=== PATIENT | female | born 1940 | race Caucasian/White ===

== ENCOUNTER 2016-10-17 07:45 | Day surgery (SDC) | payer MEDICARE, MEDICAID ==
[~2016-10-17] VITALS: Ht 167.6 cm; Wt 59.0 kg
[2016-10-17] VITALS (9 sets, daily range): BP systolic 84–161; BP diastolic 43–76; PULSE 47–58; RESP 16–18; O2SAT 94–100
[~2016-10-17 07:45] MED LIST: ATEN25TA PO; CHOL400D4 PO; GLUC100016 PO; Lactated Ringer's 1,000 ML IV ONE; NAPR220C11 PO; OMEG300C3 PO; OMEP40CA36 PO; PANT40TA3 PO; PYR50 PO; RESV50CA PO; [UNRECOGNIZED DRUG - CODE] PO
[2016-10-17] MEDS ORDERED: Lidocaine PF 1% 30 mL Inj ONE (07:46)
[2016-10-17] MEDS ORDERED: Propofol 10,000 mCg/mL 20 mL Inj ONE (07:46)
[2016-10-17] MEDS ORDERED: ACAI500C PO (08:16)
[2016-10-17] MEDS ORDERED: [UNRECOGNIZED DRUG - CODE] PO (08:16)
[2016-10-17] MEDS ORDERED: MULT-1018 PO (08:16)
[2016-10-17] MEDS ORDERED: ZINC30TA2 PO (08:16)
[2016-10-17] MEDS ORDERED: CHOL650T PO (08:16)
[2016-10-17] MEDS ORDERED: QUER1POW PO (08:16)
[2016-10-17] MEDS ORDERED: CALC600T12 PO (08:16)
[2016-10-17] MEDS ORDERED: Lactated Ringer's 1,000 ML IV SCH (09:11)
--- NOTE | 2016-10-17 09:11 | PCM.HPANE ---
Patient Data Surgeon Admitting Provider: Attending Provider:Juan Iverson MD Primary Care Physician:Ibis Webster PA-C Other Provider:Kemi Reyesingham Anesthesia Reason for Visit Left Lower Quadrant Pain Ht/WT & BMI Body Mass Index Allergies Coded Allergies: Nitrate Analogues (Verified Allergy, Intermediate, COUGH AND EYE IRRITATION, 10/16/16) Penicillins (Verified Allergy, Intermediate, RASH, 10/16/16) Sulfa (Sulfonamide Antibiotics) (Verified Allergy, Intermediate, GI PROBLEMS, 10/16/16) TAPE (Verified Allergy, Intermediate, RASH, 10/16/16) azithromycin (Verified Allergy, Intermediate, GI UPSET, 10/16/16) hydrocodone (Verified Allergy, Intermediate, VOMITTING, 10/16/16) lactase (Verified Allergy, Intermediate, RASH, 10/16/16) oxycodone (Verified Allergy, Intermediate, NAUSEA/VOMITING, 10/16/16) codeine (Verified Adverse Reaction, Mild, vomiting, 10/17/16) gluten (Verified Adverse Reaction, Mild, MIRANDA, 10/17/16) soy (Verified Adverse Reaction, Mild, stomach upset, 10/17/16) Past Anesthesia History Anesthesia History: Denies:: Abnormal Airway, Anesthesia Reactions, Difficult Intubation, Fam Anesthesia Reaction, Fam Malignant Hypertherm, Malignant Hyperthermia Medications Reported Medications Acai Castellanos Extract (Acai Castellanos)500 Mg Capsule1 Tablet PO DAILY 10/17/16 Choline Dihydrogen Citrate (Choline Citrate)650 Mg Tablet1 Tablet PO DAILY 10/17/16 Multivitamin (Multi Vitamin Daily)1 Each Tablet1 Each PO DAILY 30 Days Ref 0 10/17/16 Quercetin Dihydrate 1 Gm Keukdc432 Mg PO DAILY 10/17/16 Zinc Gluconate (Zinc)30 Mg Xzujok67 Mg PO DAILY 10/17/16 Calcium Carbonate (Calcium)600 Mg Tablet3,000 Mg PO DAILY 10/17/16 [place] 10,000 Gm Rvuszz931 Mg PO DAILY 10/17/16 Tiller-3 Fatty Acids (Fish Oil)300 Mg Qhotiik552 Mg PO DAILY 10/16/16 Glucosamine Sulfate 2Kcl (Glucosamine)1,000 Mg Tablet1,000 Mg PO DAILY 10/16/16 Resveratrol 50 Mg Wvdudlw43 Mg PO DAILY 10/16/16 Cholecalciferol (Vitamin D3) (Vitamin D3)400 Unit/1 Ml Zfnxr846 Unit PO 10/16/16 Omeprazole 40 Mg Capsule.dr40 Mg PO TID Ref 0 06/20/16 Atenolol 25 Mg Cyhmil77.5 Mg PO BID #30 TABLET Ref 0 12/18/15 Discontinued Reported Medications Lactase (Lactaid)3,000 Unit Tablet3,000 Unit PO DAILY 10/16/16 Pyridoxine (Vitamin B-6)50 Mg Qsocqx86 Mg PO DAILY 10/16/[address] 40 Mg Tablet.dr40 Mg PO DAILY Ref 0 10/16/16 Naproxen Sodium (Aleve)220 Mg Kdluxqz430 Mg PO DIRECTED PRN For Pain 12/18/15 History History of ENT Problems?: No HEENT History: Denies:: Abnormal Airway Cataracts Difficult Intubation Dysphagia Glaucoma Hearing Problem Sinus Problem TMJ Denture Type: None Teeth Condition: Missing Teeth Hx of Heart Problems?: No Cardiovascular History: Denies:: AICD Abdominal Aortic Aneurism Atrial Fibrillation Cardiac Surgery Chest Pain Congestive Heart Failure Coronary Artery Disease Edema Heart Murmur Hypertension Irregular Heartbeat Pacemaker Peripheral Vascular Rheumatic Fever Thrombophlebitis Valvular Heart Disease Hx of Respiratory Problem?: No Respiratory History: Denies:: Asthma COPD Chest Surgery Cough Dyspnea Emphysema Hemoptysis Oxygen Administration Pneumonia Pulmonary Embolism Tuberculosis Use of C-PAP Machine Use of Inhalers / NEBS Hx Neurologic Problems?: No Neurological History: Denies:: Alzheimer's Disease CVA Dementia Dizziness Headaches Multiple Sclerosis Parkinson's Disease Peripheral Neuropathy Seizures TIA Hx of GI Problems?: No Gastrointestinal History: Denies:: Cirrhosis Diverticulitis Gall Bladder Disease Gastroesphageal Reflux Gastrointestinal Bleeding Heartburn Hepatitis Hiatal Hernia Liver Disease Rectal Bleeding Hx of Problems?: No Genitourinary History: Denies:: HX of Hemodialysis Kidney Stones Urinary Tract Infection HX of Peritoneal Dialysis: No Female Hx: Denies:: Currently Endometriosis Pelvic Inflammatory Problems with Breasts? Skin History: Denies:: History Skin Disorders? Pressure Ulcers Hx Musculoskeletal Problems?: No Musculoskeletal History: Denies:: Back Injury Degenerative Joint Fibromyalgia Joint Replacement Musculoskeletal Trauma Myasthenia Gravis Osteoarthritis Rheumatoid Arthritis Systemic Lupus Hx of Psycho/Social Problems?: No Psycho Social History: Denies:: Anxiety Bipolar Disorder Hx Depression Suicide Attempt Hx Surgeries?: No Hx Any Other Health Problems?: No Other History: Denies:: Cancer Endocrine Disease Hospitalization Thyroid Disease History Blood Transfusions: Denies:: Accept Blood Products? Blood Transfuse Reaction Blood Transfusions Hx Diabetes: No Hx Alcohol Use: NoHave You Smoked inLast 12 mo: No Stop/Bang Risk Assessment Category Category 1A: Patient has history of documented sleep apnea, and HAS NOT received any narcotic, sedative or anesthesia administration during this stay. Category 1B: Patient has history of documented sleep apnea, and HAS received any narcotic , sedative or anesthesia administration during this stay Category 2: Patient has SUSPECTED Obstructive Sleep Apnea, and HAS received any narcotic , sedative or anesthesia administration during this stay. Category 3: Patient has SUSPECTED Obstructive Sleep Apnea and HAS NOT received narcotic, sedative or anesthesia administration during this stay. Category 4: Outpatient in Procedural Areas with known sleep apnea or who screen positive for High Risk via the STOP/BANG questionnaire. Exam Exam General Appearance: Alert, Oriented X3, Cooperative, No Acute Distress HEENT/AIRWAY: MP 2, Neck Movement (FROM), Mouth Opening (3 FBMO) Lungs: Normal Air Movement Heart: Regular Rate/Rhythm Plan Impression Patient chart reviewed, patient interviewed and anesthestic plan with risks, benefits, and alternatives discussed, and informed consent obtained. NPO per Anesth. Guidelines: Yes ASA Physical Status: ASA2 Mod Systemic Disease Anesthetic Plan: GA, MAC Bene/Risks/Altern/Consents: Yes HP Complete Prior to Induction: Yes Eric Ma MD October 17, 2016 07:27
[2016-10-17] MEDS ORDERED: Ondansetron 2 mg/mL 2 mL Inj IVPUSH PRN (09:15)
[2016-10-17] MEDS ORDERED: MetoCLOpramide 5 mg/mL 2 mL Inj IVPUSH PRN (09:15)
--- NOTE | 2016-10-17 09:40 | PCM.ENDCOL ---
Colonoscopy Date of Service: October 17, 2016 Physician Juan Iverson MD Pre Procedure Diagnosis: Abdominal pain screening Post Procedure Dx & Findings: Polyp prominence fold hemorrhoids Procedure Colonoscopy PROCEDURE IN DETAIL: Prep adequate Withdrawal time 15 minutes After unremarkable rectal examination the Olympus video colonoscope was inserted patient's anal canal and was advanced to cecum. Landmarks were identified including the ileocecal valve and appendiceal orifice. Scope further as the terminal ileum which showed normal villous structure without any ulcer mass or ulcer. Advanced 10 cm. Scope was withdrawn systematically. Visualized colonic mucosa showed healthy shiny mucosa with normal healthy- appearing vasculature. In the cecum there were 2 polyps. One was 1 mm polyp and the other polyp was about 2 mm. Both resected completely using cold snare. The transverse colon, there are 2 polyps. Both were about 2-3 mm in size which was removed completely using cold snare. In the sigmoid colon there was a 2 mm polyp which was removed completely using cold snare. 15 cm from the anal verge, there was a 1 cm prominent fold. Narrowing banding did not reveal adenomatous pattern. Biopsies obtained. Positive pillow sign. In the rectum retroflexion was done which showed hemorrhoids. Anal canal was inspected carefully on the way out and hemorrhoids noted. Impression Polyp 5 status post complete removal Prominent fold Hemorrhoids No Source of abdominal pain. Recommendation Repeat colonoscopy 3 years Follow up in GI clinic Presedation Assessment Risks and Benefits Informed consent was obtained from the patient after all risks and benefits including but not limited to drug reaction, infection, pain, bleeding, perforation, as well as alternatives were discussed. Patient monitoring Continuous pulse oximetry, cardiac monitoring, blood pressure monitoring, IV access, and oxygen at 2L per nasal cannula. Complications There were no periprocedural complications identified. Post Procedure Plan Post Procedure Recommendations 1. Restrict activities today. 2. Resume normal activities in the morning. 3. Resume medications. 4. Patient informed of normal post procedure side effects as bloating, drowsiness, blood streaking in the stool. 5. average risk CRCS. If colon polyps come back as: -Hyperplastic- can repeat colonoscopy in 10 years -Tubular adenoma- repeat colonoscopy in 5 years -Tubulovillous/villous adenoma- repeat colonoscopy in 3 years -If any dysplasia- return to clinic as soon as possible 6. Please don't hesitate to call me with any questions. Juan Iverson MD October 17, 2016 09:40
[2016-10-17] MEDS ORDERED: 0.9% Sodium Chloride 1,000 ML IV ONE (11:00)
[2016-10-17] MEDS ORDERED: Acetaminophen IV 1,000 MG in IV Premix 1 EACH IV ONE (11:00)
--- NOTE | 2016-10-17 17:37 | PCM.ANEP1 ---
Post Anesthesia PACU Phase 1 Assessment Vital Signs Vital Signs Date Time Temp Pulse Resp B/P Pulse Ox O2 Delivery O2 Flow Rate FiO2 10/17/16 10:52 57 16 161/76 99 Room Air 10/17/16 10:42 52 16 159/67 95 Room Air 10/17/16 10:32 50 16 152/70 100 Room Air 10/17/16 10:21 47 18 152/70 100 Room Air 10/17/16 10:08 52 18 135/62 94 Room Air 10/17/16 09:58 55 18 121/56 99 Nasal Cannula 1 10/17/16 09:48 55 18 106/55 99 Nasal Cannula 3 10/17/16 09:38 55 18 84/43 98 Nasal Cannula 3 Anesthetic Administered: MAC Level of Alertness: Awake, talking R[place]FORD's with Equal Strength: Yes Pain: No Nausea or Vomiting: No CV Function and Hydration: No Airway Device: none Oxygen Delivery: Room Air Lungs: Normal Air Movement Dermatome Level: Full Sensation PACU Phase 2 Assessment Complications: No Follow up Care: N/A Patient Instructions Provided: N/A Eric Ma MD October 17, 2016 17:37
--- NOTE | 2016-10-18 13:22 | PATH ---
SURGICAL PATHOLOGY Attending Physician:Juan Iverson M.D. CASE STATUS: Signed Out PATIENT NAME: EMILY SMITH PID: [id number] : 1940 DATE COLLECTED:10/17/2016 18:00 SPECIMEN: 1: Colon, Biopsy 2: Colon, Biopsy 3: Colon, Biopsy 4: Colon, Biopsy CLINICAL HISTORY: 1. CECAL POLYP 2. TRANSVERSE COLON POLYPS X2 3. SIGMOID COLON POLYP 4. LIPOMA @ 15CM BXS FINAL DIAGNOSIS: 1. Cecum, Polyp, Biopsy: Portion of tubular adenoma x 1; negative for high-grade dysplasia. Portion of colorectal mucosa x 1 with features suggestive of sessile serrated adenoma. 2. Transverse Colon, Polyps, Biopsies: Portions of tubular adenoma x2; negative for high-grade dysplasia. 3. Sigmoid Colon, Polyp, Biopsy: Portions of tubular adenoma x2; negative for high-grade dysplasia. 4. Lipoma At 15 cm, Biopsy: Tangentially oriented portions of colorectal mucosa with hyperplastic mucosal features; cannot exclude sessile serrated adenoma due to tangential orientation of tissue fragments. No histologic evidence of lipoma. ICD10: K63.5 GROSS DESCRIPTION: The specimen is received in four formalin filled containers labeled with the patient's name. 1). The specimen is sublabeled "cecal polyp" and consists of 2 portions of tissue which aggregate to 0.4 x 0.4 x 0.2 CM. The specimen is entirely submitted in cassette 1A. 2). The specimen is sublabeled "transverse polyp" and consists of 2 portions of tissue which aggregate to 0.2 x 0.2 x 0.2 CM. The specimen is entirely submitted in cassette 2A. 3). The specimen is sublabeled "sigmoid polyp" and consists of 2 portions of tissue which aggregate to 0.3 x 0.2 x 0.2 CM. The specimen is entirely submitted in cassette 3A. 4). The specimen is sublabeled "lipoma at 15 CM" and consists of 2 portions of tissue which aggregate to 0.3 x 0.3 x 0.2 CM. The specimen is entirely submitted in cassette 4A. 10/17/2016 [facility] ICD-9 CODES: CPT CODES: 1: 12404 2: 33824 3: 16243 4: 96508 Electronically Signed Out MD [facility] [address], [place] [address] Technical component performed at [facility], [address], [place], [address]
== END 2016-10-17 23:59 | disposition home or self-care (01) ==
LOC: END 07:45
PROVIDERS: ATTEND Internal Medicine
DX: D12.0 Benign neoplasm of cecum (principal); D12.3 Benign neoplasm of transverse colon; D12.5 Benign neoplasm of sigmoid colon; K64.9 Unspecified hemorrhoids; Z92.83 Personal history of failed moderate sedation; Z87.440 Personal history of urinary (tract) infections; E78.5 Hyperlipidemia, unspecified
CPT/HCPCS: 45380; 45385; 88305; J0131; J7030; J7120